=== PATIENT | male | born 1935 | race Caucasian/White ===

== ENCOUNTER 2022-01-09 10:21 | Outpatient (CLI) | payer BC, MEDICARE ==
[2022-01-09] MEDS ORDERED: Iopamidol 370 76% 100 ML VIAL ONE (14:14)
== END 2022-01-09 10:22 | disposition home or self-care (01) ==
LOC: CSHCT 10:21
PROVIDERS: ATTEND Physician Assistant Medical
DX: R19.7 Diarrhea, unspecified (principal); K57.30 Diverticulosis of large intestine without perforation or abscess without bleeding; N40.0 Benign prostatic hyperplasia without lower urinary tract symptoms; N32.89 Other specified disorders of bladder
CPT/HCPCS: 74177; 82565; Q9967